=== PATIENT | male | born 1985 | race American Indian/Alaskan Native ===

== ENCOUNTER 2018-03-17 21:05 | Emergency (ER) | payer SELFPAY ==
[2018-03-17] MEDS ORDERED: MOTRIN PO ONE (22:58)
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
--- NOTE | 2018-03-18 01:06 | XRay Report ---
FINAL REPORT PROCEDURE: XR CHEST ROUTINE 2V TECHNIQUE: PA and lateral chest radiographs were obtained. CPT 35722 HISTORY: cough with chest pain low-grade fever COMPARISON: No prior studies are available for comparison. FINDINGS: Heart: Normal. Mediastinum/Vessels: Normal. Lungs/Pleural space: Normal. Bony thorax: No acute osseous abnormality. Other: IMPRESSION: Normal examination.
[2018-03-18 03:32] VITALS: BP 106/60
== END 2018-03-18 03:33 | disposition home or self-care (01) ==
LOC: ED 21:05
DX: B34.9 Viral infection, unspecified (principal); I10 Essential (primary) hypertension; Z79.899 Other long term (current) drug therapy; Z91.018 Allergy to other foods
CPT/HCPCS: 71046; 87116; 87430